=== PATIENT | male | born 1970 | race Caucasian/White ===

== ENCOUNTER 2017-11-29 20:28 | Emergency (ER) | payer BC, OTHER ==
[~2017-11-29] VITALS: Ht 177.8 cm; Wt 90.7 kg
[2017-11-29] MEDS ORDERED: LEVE1000 PO (20:48)
--- NOTE | 2017-11-29 20:52 | NUR ---
ICE PACK PROVIDED FOR PT COMFORT
--- NOTE | 2017-11-29 21:02 | NUR ---
DR ANGELES REECE MD AT BEDSIDE FOR MSE.
[2017-11-29] MEDS ORDERED: KETOROLAC TROMETHAMINE 60 MG INJ IM ONE ×2 (21:15→21:18)
--- NOTE | 2017-11-29 21:19 | NUR ---
RADIOLOGY AT BEDSIDE FOR XRAY.
[2017-11-29] MEDS ORDERED: TRAMADOL HCL 50 MG TABLET ONE (21:29)
[2017-11-29] MEDS ORDERED: TRAMADOL HCL 50 MG TABLET PO ONE (21:30)
--- NOTE | 2017-11-29 21:31 | NUR ---
PT AMBULATED TO BATHROOM W/ STEADY GAIT. NO DISTRESS NOTED.
--- NOTE | 2017-11-29 22:25 | NUR ---
Patient discharged to home in stable conditon. Written and verbal after care instructions given. Patient verbalizes understanding of instructions. Pt ambulated from ER w/ steady gait. Denies pain. No distress noted. Pt took all personal belongings.
[2017-11-29 22:27] VITALS: BP 136/84
== END 2017-11-29 22:27 | disposition home or self-care (01) ==
LOC: ER 20:29
DX: M25.571 Pain in right ankle and joints of right foot (principal); Z79.899 Other long term (current) drug therapy
CPT/HCPCS: 73630; A4663; J1885